=== PATIENT | female | born 1980 | race Caucasian/White ===

== ENCOUNTER → 2016-04-18 | Outpatient (CLI) | payer BC ==
[2016-04-18 17:36] LABS: CH 29.8; CHCM 33.2; HCT 37.8 % (34.0-46.0); HGB 12.9 gm/dL (11.4-16.0); MCH 30.8 pg (25.0-35.0); MCHC 34.2 g/dL (31.0-37.0); Mean Platelet Volume 7.7; RDW 12.4 % (11.5-15.5); WBC 7.5 k/uL (3.8-10.6)
[2016-04-18 17:44] LABS: ALT 34 U/L (9-52); AST 18 U/L (14-36); Alkaline Phosphatase 72 U/L (38-126); Anion Gap 12 mmol/L; Blood Urea Nitrogen 13 mg/dL (7-17); Calcium 9.3 mg/dL (8.4-10.2); Carbon Dioxide 28 mmol/L (22-30); Chloride 103 mmol/L (98-107); Glucose 90 mg/dL (74-99); Non-African American GFR(MDRD) >60 (>60 ml/min/1.73 sqM); Potassium 4.6 mmol/L (3.5-5.1); Sodium 143 mmol/L (137-145); Total Bilirubin 0.4 mg/dL (0.2-1.3); Total Protein 7.2 g/dL (6.3-8.2)
== END | disposition home or self-care (01) ==
LOC: LABWHC1 16:36
PROVIDERS: ATTEND Nurse Practitioner
DX: D68.59 Other primary thrombophilia (principal); Z79.01 Long term (current) use of anticoagulants; Z86.711 Personal history of pulmonary embolism
CPT/HCPCS: 36415; 80053; 85027

== ENCOUNTER → 2016-12-26 | Outpatient (CLI) | payer BC ==
[2016-12-26 13:27] LABS: CH 30.2; CHCM 32.7; HCT 40.2 % (34.0-46.0); HDW 2.38; HGB 13.3 gm/dL (11.4-16.0); MCH 30.7 pg (25.0-35.0); MCHC 33.1 g/dL (31.0-37.0); MCV 92.6 fL (80.0-100.0); Mean Platelet Volume 7.9; RBC 4.34 m/uL (3.80-5.40); RDW 12.2 % (11.5-15.5); WBC 7.3 k/uL (3.8-10.6)
[2016-12-26 14:54] LABS: ALT 37 U/L (9-52); AST 21 U/L (14-36); Alkaline Phosphatase 74 U/L (38-126); Anion Gap 12 mmol/L; Blood Urea Nitrogen 12 mg/dL (7-17); Calcium 9.4 mg/dL (8.4-10.2); Carbon Dioxide 24 mmol/L (22-30); Chloride 104 mmol/L (98-107); Glucose 89 mg/dL (74-99); Non-African American GFR(MDRD) >60 (>60 ml/min/1.73 sqM); Potassium 4.1 mmol/L (3.5-5.1); Sodium 140 mmol/L (137-145); Total Bilirubin 0.4 mg/dL (0.2-1.3); Total Protein 6.9 g/dL (6.3-8.2)
[2016-12-29 07:49] LABS: Mis test requested (Blood) Factor VIII Activity
== END | disposition home or self-care (01) ==
LOC: LABWHC1 12:22
PROVIDERS: ATTEND Nurse Practitioner
DX: D68.59 Other primary thrombophilia (principal)
CPT/HCPCS: 36415; 80053; 82306; 85027; 85240; 85306

== ENCOUNTER → 2017-11-17 | Outpatient (CLI) | payer BC ==
--- NOTE | 2017-11-17 08:02 | US ---
EXAMINATION TYPE: US pelvis complete transvag DATE OF EXAM: 11/17/2017 COMPARISON: NONE CLINICAL HISTORY: Z97.5 R10.2 Z87.42. TECHNIQUE: . Transabdominal sonographic images of the pelvis were acquired. Transvaginal sonographi c images were medically necessary to better assess the following anatomy: IUD placement and ovaries Date of LMP: Irregular cycles due to IUD EXAM MEASUREMENTS: Uterus: 10.2 x 4.4 x 6.2 cm Endometrial Stripe: 0.4 cm Right Ovary: 3.9 x 1.8 x 1.9 cm Left Ovary: 3.4 x 2.1 x 2.2 cm 1. Uterus: Anteverted Nabothian cyst visualized in cervix 2. Endometrium: IUD is visualized within the myometrium to the right of the endometrium. 3. Right Ovary: Multiple follicles visualized 4. Left Ovary: Multiple follicles visualized 5. Bilateral Adnexa: wnl 6. Posterior cul-de-sac: wnl IMPRESSION: 1.IUD is visualized within the myometrium to the right of the endometrium.
== END | disposition home or self-care (01) ==
LOC: RADUSWWP 07:00
PROVIDERS: ATTEND Obstetrics & Gynecology
DX: R10.2 Pelvic and perineal pain (principal); Z87.42 Personal history of other diseases of the female genital tract; Z97.5 Presence of (intrauterine) contraceptive device
CPT/HCPCS: 76830; 76856

== ENCOUNTER → 2020-05-19 | Outpatient (CLI) | payer BC ==
--- NOTE | 2020-05-20 08:22 | CT ---
EXAMINATION TYPE: CT soft tissue neck w con DATE OF EXAM: 05/19/2020 6:14 PM COMPARISON: None HISTORY: left sided neck swelling CT DLP: 299.7 mGycm Automated exposure control for dose reduction was used. CONTRAST: CT scan of the neck is performed following with IV Contrast, patient injected with 100 mL of Isovue 3 00. Axial images are obtained, coronal and sagittal reformatted images are reviewed. FINDINGS: Parotid and submandibular glands have a symmetric appearance. Vocal cords have a normal jaylin earance. Thyroid gland is normal. Lung apices clear. Base of the tongue symmetric. Oropharynx and nasopharynx symmetric. Orbits also have a symmetric appe arance. Intracranial structures symmetric. Suggestion of possible previous Chiari malformation decomp ressive surgery. Small mucous retention cyst or polyp within the left maxillary sinus. Scattered shotty adenopathy see n throughout the compartments of the soft tissue the neck with no lymph node measuring greater than 1 cm in short axis. No soft tissue edema or subcutaneous edema noted. No subcutaneous mass identified. IMPRESSION: 1. No acute process. 2. Decompression surgery with Chiari malformation. 3. There are no lymph nodes measuring greater than 1 cm in short axis. Shotty lymphadenopathy seen sc attered throughout the compartments of the soft tissues of the neck.
== END | disposition home or self-care (01) ==
LOC: RADCTMAIN 17:55
PROVIDERS: ATTEND Internal Medicine
DX: R59.0 Localized enlarged lymph nodes (principal)
CPT/HCPCS: 70491; Q9967

== ENCOUNTER → 2024-07-30 | Outpatient (CLI) | payer BC ==
[2024-07-30 14:13] VITALS: BP 130/88; PULSE 90; RESP 16; TEMP 98.1
--- NOTE | 2024-07-30 15:37 | P.SLEEP ---
History of Present Illness H&P Date: 07/30/24 This is a 44-year-old female patient, presenting for sleep apnea evaluation. The patient is excessively fatigued and sleepy. She snores and she has been noted to stop breathing by her . She goes to bed at around 10 PM and she gets out of bed at 6:15 AM in the morning and on weekends she stays between midnight and 9 AM. Nevertheless, she wakes up not refreshed and she feels sleepy throughout the day. 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 She has gained weight over the years and the patient is up with her weight by around 15 pounds over the past 1 year. She naps in the afternoon. She can easily fall asleep at any time. No history of any motor vehicle accidents because of feeling drowsy or sleepy. His sleep is quite fragmented and she wakes up at least 2-4 times in the middle of the night and occasionally she uses the bathroom. She denies waking up choking or gasping for air. No restlessness in lower extremities. No grinding of the teeth. No sleepwalking or sleep talking. No anxiety or panic attacks. No palpitations or heartburn. She is known to have Arnold-Chiari malformation and the patient underwent a craniotomy at the age of 26. 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 She also had history of DVT and pulmonary embolism. She was hospitalized approximately 15 years ago and she was treated with anticoagulants. She subsequently was seen at [facility] [place] by hematology department and she was recommended to stay on lifelong anticoagulation and currently she is on Eliquis 5 mg p.o. twice a day. No recurrent events of clotting since. No morning headaches. No substance abuse. She drinks alcohol socially. Her current Lindenwood score is at 17. Review of Systems Constitutional: Reports daytime sleepiness, Reports fatigue, Reports weight gain Eyes: denies as per HPI, denies blurred vision, denies bulging eye, denies decreased vision, denies diplopia, denies discharge, denies dry eye, denies irritation, denies itching, denies pain, denies photophobia, denies loss of peripheral vision, denies loss of vision, denies tunnel vision/blind spots Ears: deny: decreased hearing, ear discharge, earache, tinnitus Ears, nose, mouth and throat: Reports as per HPI Breasts: absent: as per HPI, change in shape, gynecomastia, masses, nipple discharge, pain, skin changes, swelling Cardiovascular: Reports as per HPI Respiratory: Reports snoring Gastrointestinal: Reports as per HPI Genitourinary: Reports as per HPI Menstruation: Reports as per HPI Musculoskeletal: Reports as per HPI Musculoskeletal: absent: ankle pain, ankle stiffness, ankle swelling, as per HPI, elbow pain, elbow stiffness, elbow swelling, foot pain, foot stiffness, foot swelling, hand pain, hand stiffness, hand swelling, hip pain, hip stiffness, hip swelling, knee pain, knee stiffness, knee swelling, shoulder pain, shoulder stiffness, shoulder swelling, wrist pain, wrist stiffness, wrist swelling Integumentary: Reports as per HPI Neurological: Reports as per HPI Psychiatric: Reports change in sleep habits, Reports hypersomnia, Reports sleep disturbances Endocrine: Reports as per HPI, Reports fatigue Hematologic/Lymphatic: Reports as per HPI Allergic/Immunologic: Reports as per HPI Past Medical History Past Medical History: GERD/Reflux Additional Past Medical History / Comment(s): Arnold Chiari Malformation , blood clots History of Any Multi-Drug Resistant Organisms: None Reported Past Surgical History: Appendectomy, Section Additional Past Surgical History / Comment(s): Arnold Chiari Decompression Past Anesthesia/Blood Transfusion Reactions: Postoperative Nausea & Vomiting (PONV) Additional Past Anesthesia/Blood Transfusion Reaction / Comment(s): pulmonary Embolism post Past Psychological History: Anxiety, Depression Smoking Status: Former smoker Past Alcohol Use History: Occasional Past Drug Use History: None Reported - Past Family History Father Family Medical History: Sleep Apnea/CPAP/BIPAP Additional Family Medical History / Comment(s): snoring, Headaches, falls asleep easily Mother Family Medical History: GERD/Reflux Additional Family Medical History / Comment(s): Insomnia, mental illness Medications and Allergies Home Medications Medication Instructions Recorded Confirmed Type Apixaban [Eliquis] 5 mg PO BID 07/30/24 07/30/24 History Aspirin EC [Ecotrin Low Dose] 81 mg PO DAILY 07/30/24 07/30/24 History Omeprazole 40 mg PO DAILY 07/30/24 07/30/24 History PARoxetine [Paxil] 20 mg PO DAILY 07/30/24 07/30/24 History Physical Exam Vitals: Vital Signs Temp Pulse Resp BP Pulse Ox 07/30/24 14:11 98.1 F 90 16 130/88 99 Intake and Output 07/29/24 07/30/24 07/30/24 22:59 06:59 14:59 Other: Weight 96.162 kg The patient appeared well nourished and normally developed. Vital signs as documented. The patient has a body mass index of 35.8 Head exam is unremarkable. No scleral icterus or corneal arcus noted. Neck is without jugular venous distension, thyromegaly, or carotid bruits. Carotid upstrokes are brisk bilaterally. The patient has a Mallampati class IV with a slight overbite. Lungs are clear to auscultation and percussion. Cardiac exam reveals the PMI to be normally sized and situated. Rhythm is regular. First and second heart sounds normal. No murmurs, rubs or gallops. Abdominal exam reveals normal bowel sounds, no masses, no organomegaly and no aortic enlargement. Extremities are nonedematous and both femoral and pedal pulses are normal. Examination of the skin revealed no evidence of significant rashes, suspicious appearing nevi or other concerning lesions. Neurologically, the patient is awake and alert and the patient does not have any focal neurological deficit. Cranial nerves are essentially intact. Assessment and Plan Plan: Chronic hypersomnia with an Lindenwood score of 17 with increased likelihood of obstructive sleep apnea based on history of snoring and witnessed apneas. Obesity with a BMI of 34.7 Mallampati class IV with an overbite Arnold-Chiari malformation with a previous craniotomy Previous history of cavernous venous sinus thrombosis Previous history of DVT and pulmonary embolism History of chronic anxiety/depression maintained on Paxil Plan High likelihood for obstructive sleep apnea. The patient is going to undergo a screening polysomnography and based on that we will make further recommendation of treatment options. Maintain regular sleep schedule Maintain good sleep hygiene measures Encourage weight loss Continue anticoagulation with Eliquis Will continue to follow Sleep Note - Sleep Data ESS Total: 17 - Sleep Note Sleep Note: Temperature: 98.1 F Pulse Rate: 90 Respiratory Rate: 16 Blood Pressure: 130/88 SpO2: 99 Height: 5 ft 5.5 in Weight: 96.162 kg BMI: Neck Circumference: 15
== END ==
LOC: 3 N SLEEP 13:53
PROVIDERS: ATTEND Internal Medicine Critical Care Medicine
DX: G47.10 Hypersomnia, unspecified (principal); E66.9 Obesity, unspecified; M26.29 Other anomalies of dental arch relationship; Q07.00 Arnold-Chiari syndrome without spina bifida or hydrocephalus; G08 Intracranial and intraspinal phlebitis and thrombophlebitis; O87.1 Deep phlebothrombosis in the puerperium; I26.99 Other pulmonary embolism without acute cor pulmonale; Z98.890 Other specified postprocedural states; Z68.34 Body mass index [BMI] 34.0-34.9, adult; Z86.59 Personal history of other mental and behavioral disorders
CPT/HCPCS: 99211

== ENCOUNTER → 2024-09-23 | Outpatient (CLI) | payer BC ==
--- NOTE | 2024-09-24 14:43 | P.PCN ---
Date of Procedure: 09/23/24 Operative Findings: Home sleep study report History This is a 44-year-old female patient, presenting for sleep apnea evaluation. The patient is excessively fatigued and sleepy. She snores and she has been noted to stop breathing by her . She goes to bed at around 10 PM and she gets out of bed at 6:15 AM in the morning and on weekends she stays between midnight and 9 AM. Nevertheless, she wakes up not refreshed and she feels sleepy throughout the day. 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 She has gained weight over the years and the patient is up with her weight by around 15 pounds over the past 1 year. She naps in the afternoon. She can easily fall asleep at any time. No history of any motor vehicle accidents because of feeling drowsy or sleepy. His sleep is quite fragmented and she wakes up at least 2-4 times in the middle of the night and occasionally she uses the bathroom. She denies waking up choking or gasping for air. No restlessness in lower extremities. No grinding of the teeth. No sleepwalking or sleep talking. No anxiety or panic attacks. No palpitations or heartburn. She is known to have Arnold-Chiari malformation and the patient underwent a craniotomy at the age of 26. 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 She also had history of DVT and pulmonary embolism. She was hospitalized approximately 15 years ago and she was treated with anticoagulants. She subsequently was seen at [facility] by hematology department and she was recommended to stay on lifelong anticoagulation and currently she is on Eliquis 5 mg p.o. twice a day. No recurrent events of clotting since. No morning headaches. No substance abuse. She drinks alcohol socially. Her current Anna score is at 17. Pertinent physical findings Weight is 263 pounds with a BMI of 34.7 Technical description The [employer] system was used to complete his home sleep study. This is a type III home sleep study evaluation. The total recording duration was 9 hours and 12 minutes. The study started at 10:06 PM and it ended at 7:18 AM. There was a total of 8 hours and 55 minutes of flow monitoring and 9 hours and 1 minute of oxygen saturation monitoring. This was an adequate study Results Respiratory analysis showed a total of 267 obstructive apneas and 264 obstructive hypopneas and the resulting AHI was 59.5 consistent with severe obstructive sleep apnea Oxygenation analysis The baseline pulse ox was 96% on room air oxygen. Average pulse ox during sleep was 93% and the minimum pulse ox was 83% and the patient spent approximately 22 minutes of the sleep time below pulse ox of 89% Cardiac summary Average heart rate was 70 with a minimum heart rate of 56 and a maximum heart rate of 106 Assessment Severe symptomatic obstructive sleep apnea with an AHI of 59.5 Mild nocturnal oxygen desaturation secondary to obstructive sleep apnea Chronic hypersomnia with an Anna score of 17 Obesity with a BMI of 34.7 Mallampati class IV with an overbite Arnold-Chiari malformation with a previous craniotomy Previous history of cavernous venous sinus thrombosis Previous history of DVT and pulmonary embolism History of chronic anxiety/depression maintained on Paxil Plan The home sleep study is consistent with severe obstructive sleep apnea Maintain regular sleep schedule Maintain good sleep hygiene measures Encourage weight loss Continue anticoagulation with Eliquis Proceed with a CPAP titration, in-lab Will continue to follow
== END ==
LOC: 3 N SLEEP 13:10
PROVIDERS: ATTEND Internal Medicine Critical Care Medicine
DX: G47.33 Obstructive sleep apnea (adult) (pediatric) (principal); E66.9 Obesity, unspecified; F32.A Depression, unspecified; F41.9 Anxiety disorder, unspecified; M26.29 Other anomalies of dental arch relationship; Q07.00 Arnold-Chiari syndrome without spina bifida or hydrocephalus; Z68.34 Body mass index [BMI] 34.0-34.9, adult; Z98.890 Other specified postprocedural states; Z86.711 Personal history of pulmonary embolism; Z86.718 Personal history of other venous thrombosis and embolism